=== PATIENT | female | born 1960 | race Caucasian/White ===

== ENCOUNTER 2019-02-03 07:11 | Day surgery (SDC) | payer OTHER ==
[2019-02-03] MEDS ORDERED: FENTAnyl 50 MCG/ML VIAL (09:57)
[2019-02-03] MEDS ORDERED: MIDAZOLAM 1 MG/ML 2 ML INJ ×2 (09:57)
== END 2019-02-03 10:53 | disposition home or self-care (01) ==
LOC: GIL 07:11
DX: Z12.11 Encounter for screening for malignant neoplasm of colon (principal); K64.8 Other hemorrhoids; I10 Essential (primary) hypertension
CPT/HCPCS: 45378